=== PATIENT | male | born 1970 ===

== ENCOUNTER 2017-11-15 14:22 | Emergency (ER) | payer BC ==
[2017-11-15 14:44] VITALS: BP 163/113
--- NOTE | 2017-11-15 15:08 | UC ---
FLU HPI - HPI Summary HPI Summary: Pt c/o malaise, fever, chills. body aches, nasal congestion. - History of Current Complaint Chief Complaint: UCGeneralIllness Stated Complaint: CONGESTION,HEADACHE Time Seen by Provider: 11/15/17 14:55 Hx Obtained From: Patient Onset/Duration: Gradual Onset, Lasting Days Severity Currently: Moderate Severity Initially: Moderate Pain Intensity: 9 Associated Signs & Symptoms: Positive: Myalgia, Nasal Congestion, Headache Related Hx: Possible Flu/Infectious Exposure - Risk Factors Influenza Risk Factors: Negative - Allergy/Home Medications Allergies/Adverse Reactions: Allergies Allergy/AdvReac Type Severity Reaction Status Date / Time bee venom protein (honey bee) Allergy Anaphylatic Verified 11/15/17 14:37 Shock Home Medications: Home Medications Dm/Acetaminophen/Doxylamine [Night Cold-Flu Relief Liq Gel] 1 each PO DAILY 11/29 [History Confirmed 11/15/17] EPINEPHrine SYR* [EPINEPHphrine SYR*] 1 each IM ONCE 11/15/17 [History Confirmed 11/15/17] guaiFENesin [Mucinex] 1,200 mg PO DAILY 11/15/17 [History Confirmed 11/15/17] PMH/Surg Hx/FS Hx/Imm Hx Previously Healthy: Yes Cardiovascular History: Hypertension - not managed - Surgical History Surgical History: Yes Surgery Procedure, Year, and Place: CARPAL TUNNEL RELEASE AND TRIGGER FINGER RELEASE BILATERAL - Family History Known Family History: Positive: Cardiac Disease - Social History Occupation: Employed Full-time Lives: With Family Alcohol Use: Weekly Substance Use Type: None Smoking Status (MU): Never Smoked Tobacco Have You Smoked in the Last Year: No Review of Systems Constitutional: Fever, Chills, Fatigue Skin: Negative Eyes: Negative ENT: Sinus Congestion Respiratory: Cough Cardiovascular: Negative Gastrointestinal: Negative Genitourinary: Negative Motor: Negative Neurovascular: Negative Musculoskeletal: Myalgia Neurological: Headache Psychological: Negative Is Patient Immunocompromised?: No All Other Systems Reviewed And Are Negative: Yes Physical Exam Triage Information Reviewed: Yes Appearance: Ill-Appearing Vital Signs: Initial Vital Signs Temp 99.1 F 11/15/17 14:33 Pulse 110 11/15/17 14:33 Resp 18 11/15/17 14:33 BP 163/113 11/15/17 14:33 Pulse Ox 98 11/15/17 14:33 Vital Signs Reviewed: Yes Eye Exam: Normal ENT: Positive: Nasal congestion Neck exam: Normal Respiratory Exam: Normal Cardiovascular Exam: Normal Musculoskeletal Exam: Normal Neurological Exam: Normal Psychological Exam: Normal Skin Exam: Normal Flu Course/Dx - Differential Dx/Diagnosis Differential Diagnosis/HQI/PQRI: Influenza, Upper Respiratory Infection Provider Diagnoses: viral syndrome Discharge - Sign-Out/Discharge Documenting (check all that apply): Discharge - Discharge Plan Condition: Stable Disposition: HOME Patient Education Materials: Viral Syndrome (ED), Hypertension (ED) Referrals: Chase Keys MD [Primary Care Provider] - As Soon As Possible Additional Instructions: Please follow up with your pCP as soon as possible regarding your elevated Blood Pressure at todasys visit. Please don ot take any Over the Counter medications such as Mucinex, Mucinex D, or anything with Sudafed as an ingredient. Please use Coricidin brand items that are recommended for people with elevated blood pressure. - Billing Disposition and Condition Condition: STABLE Disposition: HOME
== END 2017-11-15 15:19 | disposition home or self-care (01) ==
LOC: UCCORT 14:22
DX: B34.9 Viral infection, unspecified (principal)
CPT/HCPCS: 87502; 99201; G0463